=== PATIENT | male | born 1990 | race Caucasian/White ===

== ENCOUNTER → 2023-04-01 | Emergency (ER) | payer SELFPAY ==
[~2023-04-01] VITALS: Ht 190.5 cm; Wt 78.9 kg
[2023-04-01 17:39] VITALS: BP 145/82
== END | disposition left against medical advice (07) ==
LOC: ER 17:37
DX: S70.361A Insect bite (nonvenomous), right thigh, initial encounter (principal); R20.8 Other disturbances of skin sensation; Z53.21 Procedure and treatment not carried out due to patient leaving prior to being seen by health care provider; W57.XXXA Bitten or stung by nonvenomous insect and other nonvenomous arthropods, initial encounter; Y93.89 Activity, other specified; Y92.89 Other specified places as the place of occurrence of the external cause; Y99.8 Other external cause status